=== PATIENT | male | born 1945 | race Hispanic/Latino ===

== ENCOUNTER 2017-02-26 09:04 | Day surgery (SDC) | payer MEDICARE ==
--- NOTE | 2017-02-20 10:58 | Anesthesia Consultation ---
Anesthesia Consult and Med Hx Date of service: 02/20/17 - Airway Anesthetic Teeth Evaluation: Dentures, Edentulous ROM Head & Neck: Adequate Mental/Hyoid Distance: Adequate Mallampati Class: Class II Intubation Access Assessment: Probably Good - Pulmonary Exam CTA: Yes - Cardiac Exam Cardiac Exam: RRR - Pre-Operative Health Status ASA Pre-Surgery Classification: ASA3 Proposed Anesthetic Plan: General - Pulmonary Hx Smoking: Yes (STOPPED X 1 YR- 1 PPD X 50+ YRS) Hx Asthma: No COPD: No Hx Sleep Apnea: No - Cardiovascular System Hx Hypertension: Yes (CARDIAC CLEARANCE ON CHART, EF NORMAL) Hx Cardia Arrhythmia: Yes (A. Fib/A. Flutter w/ CVR) - Central Nervous System Hx Seizures: No CVA: No Hx Psychiatric Problems: No - Gastrointestinal Hx Gastroesophageal Reflux Disease: Yes - Endocrine Hx Liver Disease: No (CHRONIC PANCREATITIS) Hx Non-Insulin Dependent Diabetes: Yes Hx Thyroid Disease: No - Hematic Hx Anemia: No - Other Systems Hx Alcohol Use: No Hx Cancer: Yes (BLADDER, S/P CHEMO)
--- NOTE | 2017-02-20 11:13 | XRay Report ---
CHEST XRAY, 2 VIEWS: History: Bladder cancer, preoperative evaluation. Findings: There is mild diffuse interstitial coarsening. The lungs are hyperexpanded but clear. No infiltrate, pleural fluid or pneumothorax is detected. The cardiac silhouette and pulmonary vasculature are within normal limits for technique. The bony thorax is unremarkable. IMPRESSION: Changes consistent with COPD. No acute cardiopulmonary process.
[~2017-02-26 09:04] MED LIST: NACL 0.9% 1000 ML 1,000 ML IV SCH; PEPCID PO NR; ceFAZolin 2 GM in NACL 0.9% 100 ML IV ONE
[2017-02-26] MEDS ORDERED: MARCAINE-EPI 0.25%-1:200,000 INFILTRATI ONE ×2 (09:51→12:01)
[2017-02-26] MEDS ORDERED: DIPRIVAN 10 MG/ML IV ONE (10:15)
[2017-02-26] MEDS ORDERED: DECADRON ONE (10:16)
[2017-02-26] MEDS ORDERED: XYLOCAINE MPF 2% ONE (10:16)
[2017-02-26] MEDS ORDERED: DILAUDID ONE ×2 (10:17→12:27)
[2017-02-26] MEDS ORDERED: ZOFRAN ONE (10:17)
[2017-02-26] MEDS ORDERED: ZEMURON IV ONE (10:18)
[2017-02-26] MEDS ORDERED: ANCEF/STERILE WATER 2 GM/20 ML 2 GM/20 ML SYRINGE IV NR (11:00)
[2017-02-26] MEDS ORDERED: ePHEDrine SULFATE ONE (11:38)
[2017-02-26] MEDS ORDERED: BENADRYL ONE (11:46)
[2017-02-26] MEDS ORDERED: NACL 0.9% IR ONE (12:01)
[2017-02-26] MEDS ORDERED: LOPRESSOR IV ONE (12:30)
[2017-02-26] MEDS ORDERED: NACL 0.9% 1000 ML 1,000 ML ONE (12:31)
[2017-02-26] MEDS ORDERED: NEO SYNEPHRINE/NS Syringe(OR USE) IV ONE (13:00)
[2017-02-26] MEDS ORDERED: TORADOL ONE ×2 (13:02→14:31)
--- NOTE | 2017-02-26 13:12 | Operative Report ---
Operative Report Operative Report: Date of procedure: 02/26/2017 Pre-operative diagnosis: Bilateral inguinal hernia Post-operative diagnosis: Same Procedure name(s): Laparoscopic preperitoneal bilateral inguinal hernia repair with mesh Surgeon: Gregorio Mercado MD Side Show Entertainer: None Anesthesia: General, 0.25% Marcaine EBL: Minimal Complications: None Instrument Count: correct Indications: This is a 71-year-old male with a history of a right groin bulge now causing pain. Clinical examination was consistent with both a right inguinal hernia as well as a left inguinal hernia. He was offered the above- named procedures a possible treatment modality. The risks and benefits of discussed until all questions were answered. He was subsequently brought to the OR. Findings: None significant Procedure: The patient was placed supine upon the table after adequate anesthesia was reached. We reviewed the informed consent. The patient was then prepped and draped in the usual sterile fashion. We infiltrated local anesthetic at the level of the umbilicus. A 1 cm incision was made. Dissection was carried down to the anterior layer of the rectus sheath. This was incised using a 15 blade. The rectus muscles identify retract and laterally. We then inserted a Covidian oval balloon dissector into the pre- peritoneal space. This was inflated. We were clearly able to see the pubic arch as well as the epigastric vessels without difficulty. The balloon was then deflated and substituted for a 10 mm balloon tipped trocar. The preperitoneal space was insufflated a 10 mm mercury. We placed 2 5mm ports both in the midline after infiltration of local anesthetic. This was performed under direct vision. We began our dissection on the right and dissected free the hernia sac from the cord structures. Both the gonadal vessels and the vas deferens were identified and preserved. We then inserted a medium Bard 3-D Max right sided mesh into the preperitoneal space. This was secured medially to Javan's ligament using a Protack device and superiorly and laterally to the anterior abdominal wall. We then turned our attention to the left side. The hernia sac was identified and dissected free from the gonadal vessels and the vas deferens. Again these structures were identified and preserved. Once we were satisfied with dissection, we introduced a left-sided Bard 3-D Max medium sized mesh into the preperitoneal space. This was secured to Javan's ligament medially and superiorly and laterally anterior abdominal wall again using a Protack device. We had good coverage of the hernia spaces. Of note, care was taken to avoid the iliopubic tract. We then evacuated the insufflation. We removed all ports and closed all port sites using 4-0 Monocryl. The patient tolerated procedure well, was awakened extubated transferred to PACU in no apparent stress.
--- NOTE | 2017-02-26 13:15 | Short Stay Summary ---
Short Stay Documentation Date of service: 02/26/17 - History H&P: obtained from office - Allergies and Medications Current Medications: Allergies No Known Allergies Allergy (Verified 11/21/16 16:34) Home Medications Medication Instructions Recorded Confirmed Last Taken Type Glimepiride [Amaryl] 1 mg PO QAM 11/21/16 02/19/17 02/25/17 History Lipase/Protease/Amylase [Creon Dr 1 cap PO TIDWM 11/21/16 02/19/17 02/25/17 History 24,000 Units Capsule] Lisinopril [Zestril TAB] 5 mg PO QDAY 11/21/16 02/26/17 02/26/17 05:30 History Meclizine [Antivert] 25 mg PO PRN PRN 11/21/16 02/26/17 1 Month Ago History Tamsulosin [Flomax] 0.4 mg PO QDAY 11/21/16 02/19/17 02/25/17 History Clopidogrel [Plavix] 75 mg PO QDAY 02/19/17 02/26/17 2 Weeks Ago History Oxycodone HCl [Oxycontin] 10 mg PO TID 02/26/17 02/26/17 02/25/17 History Active Medications Famotidine (Pepcid) 20 mg PO PREOP NR Stop: 02/26/17 23:00 Last Admin: 02/26/17 10:24 Dose: 20 mg Sodium Chloride (Nacl 0.9% 1000 Ml) 1,000 mls @ 75 mls/hr IV DIRECT OREN Last Admin: 02/26/17 10:35 Dose: 75 mls/hr - Brief post op/procedure progress note Date of procedure: 02/26/17 Pre-op diagnosis: bilateral inguinal hernias Post-op diagnosis: same Procedure: Laparoscopic preperitoneal bilateral inguinal hernia repair with mesh Anesthesia: GETA Surgeon: MELIA CAIN Estimated blood loss: minimal Pathology: none Condition: stable - Disposition Condition at discharge: Stable Disposition: DC-01 TO HOME OR SELFCARE Short Stay Discharge Plan Activity: no restrictions Wound: open to air, keep clean and dry Follow up with: AMPARO RESTREPO JR, MD [Primary Care Provider] - 7 Days MELIA CAIN MD [Staff Physician] - 7 Days
[2017-02-26] MEDS: ANTILIRIUM IV PRN ×2 (13:35→13:50)
[2017-02-26] MEDS ORDERED: NARCAN 0.4 MG/1 ML ONE (13:42)
[2017-02-26] MEDS ORDERED: ANTILIRIUM ONE (13:45)
[2017-02-26] MEDS ORDERED: NARCAN 0.4 MG/1 ML IV ONE (14:24)
[2017-02-26] MEDS ORDERED: TORADOL IV ONE (14:35)
[2017-02-26] MEDS ORDERED: PERCOCET 5/325 ONE ×2 (14:40)
[2017-02-26] MEDS ORDERED: PERCOCET 5/325 PO ONE (14:44)
--- NOTE | 2017-02-26 15:06 | Post Anesthesia Evaluation ---
- Post Anesthesia Evaluation Patient Participated: Yes Airway Patent: Yes Stable Respiratory Function: Yes Nausea/Vomiting: No Temp > 96.8F: Yes Pain Manageable: Yes Adequeate Hydration: Yes Anesthesia Complications: No Block Receding Appropriately: Not Applicable Patient on Ventilator: No
[2017-02-26] MEDS ORDERED: FLUSH HEPARIN IV ONE (15:44)
[2017-02-26 15:48] VITALS: BP 108/56
== END 2017-02-26 16:08 | disposition home or self-care (01) ==
LOC: OR 09:04
PROVIDERS: ATTEND Surgery
DX: K40.20 Bilateral inguinal hernia, without obstruction or gangrene, not specified as recurrent (principal); I10 Essential (primary) hypertension; K21.9 Gastro-esophageal reflux disease without esophagitis; E11.9 Type 2 diabetes mellitus without complications; Z87.891 Personal history of nicotine dependence; Z85.51 Personal history of malignant neoplasm of bladder; Z98.890 Other specified postprocedural states; Z79.899 Other long term (current) drug therapy; Z79.84 Long term (current) use of oral hypoglycemic drugs; Z72.89 Other problems related to lifestyle; Z82.49 Family history of ischemic heart disease and other diseases of the circulatory system; Z83.3 Family history of diabetes mellitus
CPT/HCPCS: 49650; 71020; 82962; C1726; C1781; J0690; J1170; J1200; J1642; J1885; J2310; J2370; J2405; J2704; J7030; J1100

== ENCOUNTER 2017-03-01 17:58 | Emergency (ER) | payer MEDICARE ==
[2017-03-01] MEDS ORDERED: NACL ONE (21:25)
== END 2017-03-01 18:09 | disposition home or self-care (01) ==
LOC: ED 17:58
DX: R10.9 Unspecified abdominal pain (principal); Z53.21 Procedure and treatment not carried out due to patient leaving prior to being seen by health care provider